=== PATIENT | female | born 1995 | race Caucasian/White ===

== ENCOUNTER 2016-11-27 23:13 | Emergency (ER) | payer MEDICAID ==
[~2016-11-27] VITALS: Ht 165.1 cm; Wt 54.5 kg
[2016-11-28 03:17] VITALS: BP 122/76
== END 2016-11-28 03:22 | disposition home or self-care (01) ==
LOC: ER 23:13
DX: M79.644 Pain in right finger(s) (principal)
CPT/HCPCS: 29125; 29130; 73130; 81025; 99284

== ENCOUNTER 2016-12-10 21:41 | Emergency (ER) | payer MEDICAID ==
[~2016-12-10] VITALS: Ht 157.5 cm; Wt 55.0 kg
[2016-12-10] MEDS ORDERED: LORAZEPAM 1MG TABLET PO ONE (23:30)
[2016-12-11 00:11] LABS: *AMPHETAMINES SCREEN URINE NEGATIVE (NEGATIVE); *BARBITURATES SCREEN URINE NEGATIVE (NEGATIVE); *BENZODIAZEPINES SCREEN URINE NEGATIVE (NEGATIVE); *COCAINE SCREEN URINE NEGATIVE (NEGATIVE); CANNABINOID URINE SCREEN NEGATIVE (NEGATIVE); METHADONE URINE SCREEN NEGATIVE (NEGATIVE); OPIATES URINE SCREEN NEGATIVE (NEGATIVE); PHENCYCLIDINE URINE SCREEN NEGATIVE (NEGATIVE)
[2016-12-11 00:22] LABS: BASOPHILS % 0.8 % (0.0-2.0); EOSINOPHILS % 1.9 % (0.0-5.0); HEMATOCRIT. 40.5 % (36.0-48.0); HEMOGLOBIN. 13.9 g/dL (12.0-16.0); LYMPHOCYTES % 26.9 % (20.0-50.0); MEAN CORPUSCULAR HEMOGLOBIN 30.4 pg (28.0-32.0); MEAN CORPUSCULAR VOLUME 88.6 fL (81.0-99.0); MONOCYTES % 11.3 % (2.0-8.0); NEUTROPHILS % 59.1 % (40.0-76.0); PLATELET 195 x1000/uL (130-400); RED BLOOD CELL COUNT 4.57 mill/uL (4.2-5.4); RED CELL DISTRIBUTION WIDTH 12.3 % (11.6-14.6)
[2016-12-11 00:28] LABS: HCG SCREEN NEGATIVE
[2016-12-11 00:29] LABS: PARTIAL THROMBOPLASTIN TIME 27.9 sec (24.0-34.0)
[2016-12-11 00:41] LABS: CARBON DIOXIDE 25 mEq/L (21-32); CHLORIDE 107 mEq/L (98-107); CREATINE KINASE 58 IU/L (26-192); TROPONIN I < 0.02 ng/mL (0.00-0.04)
[2016-12-11 01:40] VITALS: BP 110/64
== END 2016-12-11 01:45 | disposition home or self-care (01) ==
LOC: ER 21:41
DX: F41.1 Generalized anxiety disorder (principal)
CPT/HCPCS: 36415; 71010; 80053; 80305; 82550; 83690; 83880; 84443; 84484; 84703; 85025; 85610; 85730; 93005; 99285; Z7610